=== PATIENT | female | born 1985 | race Caucasian/White ===

== ENCOUNTER 2016-10-26 17:24 | Emergency (ER) | payer SELFPAY ==
[~2016-10-26] VITALS: Ht 167.6 cm; Wt 85.8 kg
[~2016-10-26 17:24] MED LIST: Z.0.NO CURRENT MEDS
[2016-10-26 17:35] VITALS: BP 155/87; PULSE 75; RESP 16; TEMP 98.6; O2SAT 98
--- NOTE | 2016-10-26 21:47 | RADHPO ---
EXAM DATE/TIME: 10/26/2016 21:11 [place] COMPARISON: No previous studies available for comparison. INDICATIONS : Complains of pain and swelling after running marathon. MEDICAL HISTORY : None. SURGICAL HISTORY : None. ENCOUNTER: Initial ACUITY: 2 days PAIN SCORE: 9/10 LOCATION: Left foot FINDINGS: Three view examination of the left foot demonstrates no soft tissue swelling, dislocation, or fractur e. The tarsal bones appear intact. The interphalangeal and metatarsophalangeal joints are intact. The calcaneus is intact. Bony mineralization is normal. CONCLUSION: Unremarkable examination of the left foot. Eldon Heller MD on October 26, 2016 at 21:44 Board Certified Radiologist. This report was verified electronically.
[2016-10-26] MEDS ORDERED: IBUP800T23 PO (22:13)
[2016-10-26] MEDS ORDERED: CYCL1TAB29 PO (22:13)
--- NOTE | 2016-10-26 22:13 | PD ---
HPI Chief Complaint: Pain: Acute or Chronic Time Seen by Provider: 22:06 Travel History International Travel<30 days: No Contact w/Intl Traveler<30days: No Traveled to known affect area: No History of Present Illness HPI Patient is a 31-year-old female who presents emergency department for evaluation of left foot pain after running a half marathon yesterday. Patient states her foot is swollen and achy. She denies any numbness or tingling. She denies any other injury or trauma. Patient states that her right foot was swollen after her last half marathon. [facility] Past Medical History Medical History: Denies Significant Hx Diminished Hearing: No ?: Not LMP: Yesterday Past Surgical History Tonsillectomy: Yes Tympanostomy Tube: Yes Other Surgery: Yes (ADENOIDECTOMY) Social History Alcohol Use: Yes (OCCASIONALLY) Tobacco Use: No Substance Use: No Allergies-Medications (Allergen,Severity, Reaction): Coded Allergies: No Known Allergies (Verified , 02/29/12) Reported Meds & Prescriptions Reported Meds & Active Scripts Active Reported No Current Meds (Miscellaneous Medication) Misc Review of Systems Except as stated in HPI: all other systems reviewed are Neg Musculoskeletal: Positive: Myalgias, Arthralgias, Edema Physical Exam Narrative GENERAL: SKIN: Warm and dry. HEAD: Normocephalic. EYES: No scleral icterus. No injection or drainage. NECK: Supple, trachea midline. No JVD or lymphadenopathy. CARDIOVASCULAR: Regular rate and rhythm without murmurs, gallops, or rubs. RESPIRATORY: Breath sounds equal bilaterally. No accessory muscle use. GASTROINTESTINAL: Abdomen soft, non-tender, nondistended. MUSCULOSKELETAL: No cyanosis, edema noted to the dorsal aspect of the left foot. Full range of motion in left foot, positive pedal pulses, brisk less than 3 second capillary refill. No obvious deformities noted, no ecchymosis noted. BACK: Nontender without obvious deformity. No CVA tenderness. Data Data Last Documented VS Vital Signs Date Time Temp Pulse Resp B/P Pulse Ox O2 Delivery O2 Flow Rate FiO2 10/26/16 17:35 98.6 75 16 155/87 98 Orders Foot, Complete ([id number]) (10/26/16 ) [facility] [place] Medical Decision Making Medical Screen Exam Complete: Yes Emergency Medical Condition: Yes Interpretation(s) Vital Signs Date Time Temp Pulse Resp B/P Pulse Ox O2 Delivery O2 Flow Rate FiO2 10/26/16 17:35 98.6 75 16 155/87 98 Differential Diagnosis Strain versus sprain versus fracture versus other Narrative Course Patient a 31-year-old female who presents emergency evaluation of left foot pain after running a half marathon yesterday. Patient is neurovascularly intact. Imaging was negative for acute fracture. Injury appears more consistent with muscle strain. Patient was encouraged to rest, ice, elevate extremity. She'll be provided with a prescription for ibuprofen and Flexeril. She is encouraged to avoid running until she is pain-free. She was advised to return to emergency department in 7-10 days if her symptoms persisted despite conservative therapy is a fracture may be more obvious after begins to heal. She was encouraged to return to emergency department sooner for any new or worsening symptoms. Patient verbalized understanding of instructions. Patient stable for discharge. Diagnosis Primary Impression: Strain of foot, left Qualified Code: S96.912A - Strain of foot, left, initial encounter Referrals: Primary Care Physician Patient Instructions: General Instructions, Muscle Strain (DC) Additional Instructions: Follow-up with her primary doctor Rest, ice, elevate extremity Take medications as directed Return to emergency department for any new or worsening symptoms or if symptoms persist beyond 7-10 days despite conservative therapy. Med/Other Pt SpecificInfo: Prescription(s) given Scripts Cyclobenzaprine (Flexeril)10 Mg Tab10 Mg PO TID PRN (MUSCLE SPASM) 10 Days Ref 0 Prov:Kim Cobian 10/26/16 Ibuprofen 800 Mg [id number] Mg PO Q6HR PRN (PAIN) 10 Days Ref 0 Prov:Kim Cobian 10/26/16 Disposition: 01 DISCHARGE HOME Condition: Stable Kim Cobian Oct 26, 2016 22:13
== END 2016-10-26 22:30 | disposition home or self-care (01) ==
LOC: PHED 17:24 → PHEFT 22:30
DX: S96.912A Strain of unspecified muscle and tendon at ankle and foot level, left foot, initial encounter (principal); X50.0XXA Overexertion from strenuous movement or load, initial encounter; Y93.02 Activity, running; Y92.89 Other specified places as the place of occurrence of the external cause
CPT/HCPCS: 73630; 99283